=== PATIENT | female | born 1955 | race Caucasian/White ===

== ENCOUNTER 2021-09-21 09:01 | Observation (INO) ==
[2021-09-21 09:53] LABS: ABS Basophils 0.1 10^3/ul (0-0.2); ABS Eosinophils 0.2 10^3/ul (0-0.6); ABS Lymphocytes 1.1 10^3/ul (1.0-4.8); ABS Monocytes 0.4 10^3/ul (0-0.8); ABS Neutrophils 3.7 10^3/ul (1.5-7.7); Eosinophil % 3.6 %; Hematocrit 46 % (35-47); Hemoglobin 15.2 g/dL (12.0-16.0); Lymphocyte % 19.7 %; Mean Corpuscular HGB Conc 33 g/dL (31-36); Mean Corpuscular Hemoglobin 30 pg (27-31); Mean Corpuscular Volume 92 fL (80-97); Mean Platelet Volume 8.3 fL (7.4-10.4); Platelet Count 220 10^3/uL (150-450); Red Blood Count 5.01 10^6 /uL (3.70-4.87); Red Cell Distribution Width 14 % (10-15); White Blood Count 5.4 10^3/uL (3.5-10.8)
[2021-09-21] MEDS ORDERED: NS 0.9% 1000 ml BAG 1,000 ML IV ONE (09:54)
[2021-09-21] MEDS ORDERED: Diltiazem IV push/loading dose 5 MG/ML 5 ML vial (25 mg) IV PUSH ONE (09:54)
[2021-09-21] MEDS ORDERED: Diltiazem IV BAG D5W Premix 125 MG/125 ML BAG IV SCH ×2 (10:00→16:00)
[2021-09-21] MEDS ORDERED: Heparin 5000 UNITS/ML 1 mL VIAL IV SCH (10:00)
[2021-09-21 10:01] LABS: INR 0.97 (0.86-1.15)
[2021-09-21 10:21] LABS: Albumin 4.2 g/dL (3.2-5.2); Albumin/Globulin Ratio 1.5 (1-3); Calcium 10.3 mg/dL (8.6-10.3); Globulin 2.8 g/dL (2-4); Potassium 4.7 mmol/L (3.5-5.0); Total Bilirubin 0.9 mg/dL (0.2-1.0); eGFR CKD-EPI 81.2 (>60)
[2021-09-21 11:03] LABS: TSH Ultra Thyroid Stim Horm 5.47 mcIU/mL (0.34-5.60)
[2021-09-21 11:10] LABS: High Sensitivity Troponin 1 Hr 10 pg/mL (<15)
[2021-09-21] MEDS: Heparin DRIP 25,000 UNITS BAG 25,000 UNITS/500 ML BAG IV SCH (11:17)
[2021-09-21 11:23] LABS: Activated Partial Thrombo Time 30.7 seconds (26.0-38.0)
[2021-09-21] MEDS ORDERED: Diltiazem IV push/loading dose 5 MG/ML 5 ML vial (25 mg) IV SLOW PU ONE (11:44)
[2021-09-21] MEDS ORDERED: Perflutren Lipid Microsphere 3 ML VIAL ONE (15:09)
[2021-09-21] MEDS ORDERED: Diltiazem (ADVAN VIAL) 100 MG/100 ML ADDV.BAG IV SCH ×2 (16:00)
[2021-09-21] MEDS: Diltiazem Infusion @ 10 MG/HR - (MEDTELE ONLY, no titration) IV SCH (17:08)
[2021-09-21] MEDS ORDERED: Metoprolol Tartrate 5 mg VIAL 5 ml VIAL (1 mg/ml) IV PRN (17:58)
[2021-09-22] MEDS: Diltiazem Infusion @ 10 MG/HR - (MEDTELE ONLY, no titration) IV SCH (01:17)
[2021-09-22] MEDS ORDERED: Diltiazem (ADVAN VIAL) 100 MG/100 ML ADDV.BAG IV SCH (03:40)
[2021-09-22 06:16] LABS: ABS Basophils 0.1 10^3/ul (0-0.2); ABS Eosinophils 0.2 10^3/ul (0-0.6); ABS Lymphocytes 1.2 10^3/ul (1.0-4.8); ABS Monocytes 0.3 10^3/ul (0-0.8); ABS Neutrophils 4.3 10^3/ul (1.5-7.7); Eosinophil % 2.8 %; Hematocrit 45 % (35-47); Lymphocyte % 20.1 %; Mean Corpuscular HGB Conc 33 g/dL (31-36); Mean Corpuscular Hemoglobin 31 pg (27-31); Mean Corpuscular Volume 92 fL (80-97); Mean Platelet Volume 8.5 fL (7.4-10.4); Platelet Count 217 10^3/uL (150-450); Red Blood Count 4.91 10^6 /uL (3.70-4.87); Red Cell Distribution Width 14 % (10-15); White Blood Count 6.1 10^3/uL (3.5-10.8)
[2021-09-22 06:41] LABS: Calcium 9.8 mg/dL (8.6-10.3); Potassium 4.2 mmol/L (3.5-5.0); eGFR CKD-EPI 98.2 (>60)
[2021-09-22] MEDS: Heparin DRIP 25,000 UNITS BAG 25,000 UNITS/500 ML BAG IV SCH (08:07)
[2021-09-22] MEDS ORDERED: Buffered Lidocaine 1% SYRIN 1 ml INTRADERM ONE (11:40)
[2021-09-22] MEDS ORDERED: Lactated Ringers 1000 ml BAG 1,000 ML IV SCH (12:00)
[2021-09-22] MEDS ORDERED: Naloxone 0.4 mg VIAL 0.4 mg/ml 1 ml VIAL IV PRN (14:54)
[2021-09-22] MEDS ORDERED: Ondansetron 4 mg VIAL 2 MG/ML 2 ml VIAL IV PRN (14:54)
[2021-09-22] MEDS ORDERED: fentaNYL 100 mcg/2 ml 50 MCG/ML VIAL ONE (15:11)
[2021-09-22] MEDS ORDERED: Midazolam 2 mg/2 ml VIAL 1 mg/ml 2 ml VIAL (2 mg) ONE (15:11)
[2021-09-22 17:57] VITALS: BP 121/65
== END 2021-09-22 22:37 | disposition home or self-care (01) ==
LOC: EDHOLD 09:01 → ED 09:01 → MEDTELE 18:35
PROVIDERS: ADMIT Student in an Organized Health Care Education/Training Program; ATTEND Student in an Organized Health Care Education/Training Program